=== PATIENT | female | born 1990 ===

== ENCOUNTER 2018-04-26 12:09 | Emergency (ER) | payer OTHER ==
[~2018-04-26] VITALS: Ht 157.5 cm; Wt 51.3 kg
[2018-04-26] MEDS ORDERED: ABILIFY5 MG PO (12:50)
[2018-04-26] MEDS ORDERED: WELLBUTRIN XL300 MG PO (12:50)
[2018-04-26] MEDS ORDERED: DICLOFENAC POTA50 MG PO (15:23)
== END 2018-04-26 15:37 | disposition home or self-care (01) ==
LOC: ER 12:09
DX: S40.022A Contusion of left upper arm, initial encounter (principal); V00.131A Fall from skateboard, initial encounter; Y93.89 Activity, other specified; Y92.488 Other paved roadways as the place of occurrence of the external cause; Y99.8 Other external cause status

== ENCOUNTER 2023-02-14 17:46 | Emergency (ER) | payer OTHER ==
[~2023-02-14] VITALS: Ht 157.5 cm; Wt 63.5 kg
[~2023-02-14 17:46] MED LIST: ABILIFY5 MG PO; DICLOFENAC POTA50 MG PO; WELLBUTRIN XL300 MG PO
== END 2023-02-14 18:16 | disposition home or self-care (01) ==
LOC: ER 17:46
DX: R21 Rash and other nonspecific skin eruption (principal)